=== PATIENT | male | born 1965 | race Caucasian/White ===

== ENCOUNTER 2016-10-31 18:52 | Emergency (ER) | payer MEDICARE, MEDICAID ==
[2016-10-31 19:16] VITALS: BP 127/83
--- NOTE | 2016-10-31 19:20 | UC ---
Throat Pain/Nasal Edu HPI - HPI Summary HPI Summary: stuffy head facial and nasal congestion worsening over the past 2 weeks - History of Current Complaint Chief Complaint: UCGeneralIllness Stated Complaint: COUGH Time Seen by Provider: 10/31/16 19:17 Hx Obtained From: Patient Onset/Duration: Gradual Onset, Lasting Weeks - 2, Still Present, Worse Since - getting worse daily Severity: Moderate Pain Intensity: 5 Pain Scale Used: 0-10 Numeric Cough: Nonproductive Associated Signs & Symptoms: Positive: Sinus Discomfort, Nasal Discharge Related History: Seasonal Allergies, Smoking - chews - Allergies/Home Medications Allergies/Adverse Reactions: Allergies Allergy/AdvReac Type Severity Reaction Status Date / Time No Known Allergies Allergy Verified 10/31/16 19:03 PMH/Surg Hx/FS Hx/Imm Hx Previously Healthy: No Cardiovascular History Of: Reports: Hypertension Psychological History Of: Reports: Anxiety - Surgical History Surgical History: Yes Surgery Procedure, Year, and Place: left hip replacement December 2012 - Family History Known Family History: Positive: None Family History: no reported cardio vascular issues in family lineage - Social History Occupation: Employed Full-time - self employeed [place]: With Family Alcohol Use: None Substance Use Type: None Smoking Status (MU): Light Every Day Tobacco Smoker Type: Smokeless Tobacco Amount Used/How Often: 1 can every 2 days Length of Time of Smoking/Using Tobacco: 30 years Cessation Counseling: Patient Advised to Stop - Immunization History Most Recent Influenza Vaccination: 2016 Review of Systems Constitutional: Negative Skin: Negative Eyes: Negative ENT: Ear Ache, Nasal Discharge Respiratory: Cough Cardiovascular: Negative Gastrointestinal: Negative Genitourinary: Negative Motor: Negative Neurovascular: Negative Musculoskeletal: Negative Neurological: Headache - frontal sinus Psychological: Negative All Other Systems Reviewed And Are Negative: Yes Physical Exam Triage Information Reviewed: Yes Appearance: Well-Appearing, No Pain Distress, Well-Nourished Vital Signs: Initial Vital Signs Temp 97.7 F 10/31/16 19:07 Pulse 72 10/31/16 19:07 Resp 16 10/31/16 19:07 BP 127/83 10/31/16 19:07 Pulse Ox 98 10/31/16 19:07 Vital Signs Reviewed: Yes Eye Exam: Normal Eyes: Positive: Conjunctiva Clear ENT Exam: Normal ENT: Positive: Normal ENT inspection, Hearing grossly normal, Pharyngeal erythema, Nasal congestion, Nasal drainage, TMs normal Neck exam: Normal Neck: Positive: Supple, Nontender Respiratory Exam: Normal Respiratory: Positive: Chest non-tender, Lungs clear, Normal breath sounds, No respiratory distress, No accessory muscle use Cardiovascular Exam: Normal Cardiovascular: Positive: RRR, No Murmur, Pulses Normal, Brisk Capillary Refill Musculoskeletal Exam: Normal Musculoskeletal: Positive: Strength Intact, ROM Intact, No Edema Neurological Exam: Normal Neurological: Positive: Alert, Muscle Tone Normal Psychological Exam: Normal Psychological: Positive: Normal Response To Family Skin Exam: Normal Throat Pain/Nasal Course/Dx - Course Assessment/Plan: Augmentin flonase, sop using chew follow with pcp - Differential Dx/Diagnosis Differential Diagnosis/HQI/PQRI: Laryngitis, Otitis Media, Pharyngitis, Sinusitis, URI Provider Diagnoses: Rhinno sinusitis, nicotine dependence Discharge - Discharge Plan Condition: Stable Disposition: HOME Prescriptions: Albuterol HFA INHALER* [Ventolin HFA Inhaler*] 2 puff INH Q4H PRN #1 mdi PRN Reason: Cough Amoxicillin/Clavulanate TAB* [Augmentin TAB 875*] 875 mg PO BID #20 tab Spacer/Aerosol-Holding Chamber [Aerochamber Plus] 1 mis .SEE ORDER SEE INSTRUCTIONS #1 mis Patient Education Materials: Guaifenesin (By mouth), Sinusitis (ED), How to Use a Metered-Dose Inhaler (ED), Bronchospasm (ED), How to Use Nasal [place] (ED) Referrals: Kartik Schulz MD [Primary Care Provider] - 1 Week
== END 2016-10-31 19:50 | disposition home or self-care (01) ==
LOC: UCEAST 18:52
DX: J32.9 Chronic sinusitis, unspecified (principal); I10 Essential (primary) hypertension; F41.9 Anxiety disorder, unspecified; Z96.642 Presence of left artificial hip joint; F17.220 Nicotine dependence, chewing tobacco, uncomplicated
CPT/HCPCS: 99212; G0463

== ENCOUNTER 2016-11-12 12:39 | Emergency (ER) | payer MEDICARE, MEDICAID ==
[2016-11-12 13:05] VITALS: BP 121/85
--- NOTE | 2016-11-12 14:15 | UC ---
Throat Pain/Nasal Edu HPI - HPI Summary HPI Summary: This is a 51 yo male with HTN and schizophrenia who presented with c/o nasal congestion. Patient was seen ~ 2 weeks ago with similar complaints that had persisted for 2 weeks prior to that. He was treated for a sinus infection with Augmentin x 10 d which he states he completed as directed. He reports he was feeling most of the way better up until yesterday when his congestion became worse again. He denies facial pain, fever, cough. Denies known h/o seasonal allergies. - History of Current Complaint Chief Complaint: UCGeneralIllness Stated Complaint: SINUS,HEAD CONGEST-ONGOING - Allergies/Home Medications Allergies/Adverse Reactions: Allergies Allergy/AdvReac Type Severity Reaction Status Date / Time No Known Allergies Allergy Verified 11/12/16 12:55 PMH/Surg Hx/FS Hx/Imm Hx Cardiovascular History Of: Reports: Hypertension Psychological History Of: Reports: Anxiety, Schizophrenia - Surgical History Surgical History: Yes Surgery Procedure, Year, and Place: left hip replacement December 2012 - Family History Known Family History: Positive: None Family History: no reported cardio vascular issues in family lineage - Social History Alcohol Use: None Substance Use Type: None Smoking Status (MU): Light Every Day Tobacco Smoker Type: Smokeless Tobacco Amount Used/How Often: 1 can every 2 days Length of Time of Smoking/Using Tobacco: 30 years - Immunization History Most Recent Influenza Vaccination: 2016 Review of Systems Constitutional: Negative Skin: Negative Eyes: Negative ENT: Nasal Discharge Respiratory: Negative Cardiovascular: Negative Gastrointestinal: Negative Genitourinary: Negative Motor: Negative Neurovascular: Negative Musculoskeletal: Negative Neurological: Negative Psychological: Negative All Other Systems Reviewed And Are Negative: Yes Physical Exam Triage Information Reviewed: Yes Appearance: Well-Appearing Vital Signs: Initial Vital Signs Temp 98.3 F 11/12/16 12:58 Pulse 85 11/12/16 12:58 Resp 18 11/12/16 12:58 BP 121/85 11/12/16 12:58 Pulse Ox 98 11/12/16 12:58 Vital Signs Reviewed: Yes ENT: Positive: Pharynx normal, TM dull, Other: - enlarged, boggy nasal turbinates Dental Exam: Normal Neck exam: Normal Neck: Positive: Supple, Nontender, No Lymphadenopathy Cardiovascular: Positive: RRR, No Murmur Abdominal Exam: Normal Abdomen Description: Positive: Nontender Skin Exam: Normal Skin: Negative: rashes Throat Pain/Nasal Course/Dx - Course Course Of Treatment: This is a 51 yo male who presents with c/o persistent nasal congestion. Nasal turbinates large and boggy on exam. Likely allergic rhinitis. Recommended continues his flonase and add an antihistamine. Follow up with PCP for additional allergy treatment or referral to ENT if symptoms persist. - Differential Dx/Diagnosis Differential Diagnosis/HQI/PQRI: Laryngitis, Pharyngitis, Sinusitis, Tonsillitis , URI Provider Diagnoses: 1. Allergic rhinitis Discharge - Discharge Plan Condition: Stable Disposition: HOME Prescriptions: Cetirizine HCl [Zyrtec Allergy 10 MG TAB] 10 mg PO DAILY #30 tab Patient Education Materials: Allergic Rhinitis (ED) Referrals: Kartik Schulz MD [Primary Care Provider] - 2 Weeks Additional Instructions: Activity: As tolerated Instructions: 1. Start the allergy medications as prescribed 2. If you are you still having symptoms in 1-2 weeks, please follow up with your PCP
== END 2016-11-12 14:13 | disposition home or self-care (01) ==
LOC: UCEAST 12:39
DX: J30.9 Allergic rhinitis, unspecified (principal); I10 Essential (primary) hypertension; F41.9 Anxiety disorder, unspecified; F20.9 Schizophrenia, unspecified; F17.210 Nicotine dependence, cigarettes, uncomplicated; Z96.642 Presence of left artificial hip joint
CPT/HCPCS: 99212; G0463